=== PATIENT | female | born 2000 | race Caucasian/White ===

== ENCOUNTER 2019-08-13 23:23 | Emergency (ER) | payer OTHER ==
[~2019-08-13] VITALS: Ht 170.2 cm; Wt 57.2 kg
[2019-08-13 23:36] VITALS: BP 103/62; Ht 170.2 cm; Wt 57.2 kg
== END 2019-08-14 00:42 | disposition home or self-care (01) ==
LOC: ED 23:23
DX: M25.512 Pain in left shoulder (principal); R51 Headache; J45.909 Unspecified asthma, uncomplicated; V49.59XA Passenger injured in collision with other motor vehicles in traffic accident, initial encounter; Y93.89 Activity, other specified; Y92.89 Other specified places as the place of occurrence of the external cause; Y99.8 Other external cause status